=== PATIENT | male | born 1985 | race Caucasian/White ===

== ENCOUNTER 2017-08-23 17:03 | Emergency (ER) | payer SELFPAY ==
[~2017-08-23] VITALS: Ht 203.2 cm; Wt 103.1 kg
[2017-08-23 17:06] VITALS: BP 134/87; PULSE 88; RESP 16; TEMP 98; O2SAT 98
[2017-08-23] MEDS ORDERED: DIAZEPAM 5 MG TAB PO ONE (18:15)
[2017-08-23] MEDS ORDERED: KETOROLAC TROMETHAMINE 60 MG/2 ML (IM) VIAL IM ONE (18:15)
--- NOTE | 2017-08-23 18:17 | PD ---
HPI Chief Complaint: Musculoskeletal Complaint Time Seen by Provider: 18:01 Travel History International Travel<30 days: No Contact w/Intl Traveler<30days: No Traveled to known affect area: No History of Present Illness HPI 32-year-old male here with left-sided neck pain 1 day. He denies injury or trauma. He reports he awoke left-sided neck pain and muscle spasm. He has difficulty turning the head from left to right. No fever, chills, nausea vomiting, visual changes, headache. Symptom severity is moderate. Aggravated by range of motion of the neck and palpation of the area. Relieved with rest. PFS Past Medical History Medical History: Denies Significant Hx Past Surgical History Surgical History: No Previous Surgery Social History Alcohol Use: No Tobacco Use: No Substance Use: Yes (cocaine) Allergies-Medications (Allergen,Severity, Reaction): Coded Allergies: No Known Allergies (Verified Allergy, Unknown, 08/23/17) Reported Meds & Prescriptions Reported Meds & Active Scripts Active No Active Prescriptions or Reported Medications Review of Systems Except as stated in HPI: all other systems reviewed are Neg General / Constitutional: No: Fever Eyes: No: Visual changes HENT: No: Headaches Cardiovascular: No: Chest Pain or Discomfort Respiratory: No: Shortness of Breath Gastrointestinal: No: Abdominal Pain Genitourinary: No: Dysuria Skin: No Rash Neurologic: No: Weakness Physical Exam Narrative GENERAL: Alert and well-appearing 32-year-old male SKIN: Warm and dry. No rash HEAD: Atraumatic. Normocephalic. EYES: Pupils equal and round. EOMs intact. No injection or drainage. NECK: Trachea midline. No lymphadenopathy. No midline spine tenderness. No meningismus. +TTP left trapezius muscle with muscle spasm present. CARDIOVASCULAR: Regular rate and rhythm. RESPIRATORY: Clear to auscultation. Breath sounds equal bilaterally. GASTROINTESTINAL: Abdomen soft, non-tender, nondistended. MUSCULOSKELETAL: Extremities without clubbing, cyanosis, or edema. NEUROLOGICAL: Awake and alert. No obvious cranial nerve deficits. Motor grossly within normal limits. Five out of 5 muscle strength in the arms and legs. Normal speech. Data Data Last Documented VS Vital Signs Date Time Temp Pulse Resp B/P (MAP) Pulse Ox O2 Delivery O2 Flow Rate FiO2 08/23/17 17:06 98.0 88 16 134/87 (103) 98 Orders Orders Ketorolac Inj (Toradol Inj) (08/23/17 18:15) Diazepam (Valium) (08/23/17 18:15) MDM Medical Decision Making Medical Screen Exam Complete: Yes Emergency Medical Condition: Yes Differential Diagnosis Torticollis, trapezius muscle strain, meningitis, cervical spine fracture Narrative Course 32-year-old male here with left-sided neck pain. He has a normal neurologic exam. He is afebrile. He is nontoxic appearing. His exam is consistent with trapezius muscle spasm/torticollis. A shot of Toradol and Valium. On reassessment he reports symptom improvement. He is now able to turn his head from side to side with minimal pain. He is stable and ready for discharge Diagnosis Primary Impression: Trapezius muscle spasm Referrals: Primary Care Physician Departure Forms: School Release, Return to School Date: Aug 25, 2017 Tests/Procedures Additional Instructions: Medication as directed. Follow-up with your primary doctor. Scripts Cyclobenzaprine (Flexeril) 10 Mg Tab 10 MG PO TID for Muscle Spasm, #12 TAB 0 Refills Prov: Melissa Asencio 08/23/17 Ibuprofen (Ibuprofen) 800 Mg Tab 800 MG PO Q6HR Y for PAIN, #40 TAB 0 Refills Prov: Melissa Asencio 08/23/17 Disposition: 01 DISCHARGE HOME Condition: Stable Melissa Asencoi Aug 23, 2017 18:17
[2017-08-23] MEDS ORDERED: IBUP1TAB7 PO (18:57)
[2017-08-23] MEDS ORDERED: CYCL10TA PO (18:57)
== END 2017-08-23 19:12 | disposition home or self-care (01) ==
LOC: PHED 17:03 → PHEFT 19:12
DX: M62.830 Muscle spasm of back (principal); M54.2 Cervicalgia
CPT/HCPCS: 99283; J1885